=== PATIENT | female | born 2000 | race Caucasian/White ===

== ENCOUNTER 2020-02-10 14:25 | Outpatient (CLI) | payer BC, MEDICAID ==
[~2020-02-10] VITALS: Ht 157.5 cm; Wt 69.1 kg
--- NOTE | 2020-02-10 14:30 | NUR ---
1430-37.0 G1 Ambulatory to LR 4 with complaints of leaking of fluid at 1145. Assisted into gown and placed on EFM. VSS, see flow record. Amnitest negative SVE by ADAMA Hanson /. Repositioned WL. Assessment complete. Updated on plan of care.
[2020-02-10 14:33] VITALS: BP 127/86; PULSE 106; TEMP 98.1
[2020-02-10] MEDS ORDERED: ZOLOFT 100MG100 MG PO (14:37)
[2020-02-10] MEDS ORDERED: PRENATAL (14:38)
[2020-02-10 15:25] VITALS: BP 118/75; PULSE 83; TEMP 98.1
== END 2020-02-10 15:40 | disposition home or self-care (01) ==
LOC: LDRO 14:25
DX: O62.9 Abnormality of forces of labor, unspecified (principal); Z3A.37 37 weeks gestation of pregnancy

== ENCOUNTER 2020-02-14 07:41 | Inpatient (IN) | payer BC, MEDICAID ==
[2020-02-14] VITALS (61 sets, daily range): BP systolic 100–165; BP diastolic 59–93; PULSE 75–136; TEMP 97.9–100
[~2020-02-14] VITALS: Ht 157.5 cm; Wt 68.2 kg
--- NOTE | 2020-02-14 07:30 | NUR ---
0730- Pt arrives on unit via wheelchair with complaints of UCs since 0500 this morning. Pt denies LOF, or VB. +FM. Pt into bathroom to change into gown. 0735- SVE by this RN, /, unable to determine in membranes felt with exam. Unable to lift head off of cervix, no fluid noted, exam glove swabbed with amniotrace, inconclusive. Pt denies noticing fluid or vaginal discharge. Will continue to monitor.
[~2020-02-14 07:41] MED LIST: PRENATAL; ZOLOFT 100MG100 MG PO
[2020-02-14 08:36] LABS: BASO % 0.3 % (0.0-2.0); EOS # 0.1 (0.0-0.7); EOS % 0.4 % (0-4.0); GRAN # 10.2 (1.4-6.5); HEMOGLOBIN 10.7 g/dl (12.5-16.0); LYMPH # 2.4 (1.2-3.4); LYMPH % 17.4 % (20.0-51.0); MEAN CELL VOLUME 75 fl (80.0-100.0); MEAN CORPUSCULAR HEMOGLOBIN 24 pg (27.0-31.0); MEAN CORPUSCULAR HGB CONC 32 g/dl (33.0-37.0); MEAN PLATELET VOLUME 11.2 fl (7.4-10.4); MONO % 7.4 % (1.7-9.3); PLATELET COUNT 152 K/mm3 (130-400); RED BLOOD COUNT 4.48 M/mm3 (4.10-5.30); REDCELL DISTRIBUTION WIDTH-CV 13.9 % (11.5-14.5)
[2020-02-14 08:50] LABS: HEMATOCRIT 33.6 % (37.0-47.0)
--- NOTE | 2020-02-14 09:15 | NUR ---
0850- EFM and TOCO off, Pt up to void, urine sample obtained for UDS, Explained to Pt and pt verbalizes understanding. 0856- Pt back to bed, Sitting on side of bed for epidural placement. EFM and TOCO on, not tracing well due to maternal position. Sania, KEN at bedside. O2 sat monitor on and tracing. 09- Test dose by DIVISION LEADER, see anestesia record. 912- Pt assisted to semi-fowlers with WL. O2 sat monitor off. EFM and TOCO adjuseted and tracing.
[2020-02-14 09:55] LABS: TRICYCLIC ANTIDEPRESS URINE NEGATIVE
--- NOTE | 2020-02-14 10:30 | NUR ---
1010- Dr Benitez at nurses station, updated on Pt status, reviews strip. No new orders at this time. remains on unit.
--- NOTE | 2020-02-14 10:30 | NUR ---
1010- Dr Benitez at nurses station, updated on Pt staus, reviews strip. No new orders at this time. remains on unit.
--- NOTE | 2020-02-14 14:30 | NUR ---
1424- Dr Benitez at bedside, SVE umchanged from previous exam. Pt repositioned to LL with right leg on stirrup. Dr Benitez give VORB to start Pitocin per policy at 2mu.
--- NOTE | 2020-02-14 16:16 | NUR ---
1616- Pt states she, "felt a pop". Pt repositioned for SVE, schulz catheter noted to be out of urethra and laying in bed, balloon completely deflated.
--- NOTE | 2020-02-14 16:30 | NUR ---
1616- SVE by this RN, complete/+1. Practice push x1. Dr Benitez on unit, updated, MD instructs to begin pushing.
--- NOTE | 2020-02-14 18:00 | NUR ---
174- Dr Benitez at bedside to evaluate pushing. Pt feeling defeated, wants to stop pushing and do section. MD encourages Pt to continue pushing so she can evaluate. Pt agrees, continuus pushing with UCs. 1754- Dr Benitez explains that baby is not coming down in pelvis well but is otherwise tolerating pushing well. Pt wants to procede with section. Informed consent provided by . Charline off. Other staff notified of plan.
--- NOTE | 2020-02-14 18:20 | NUR ---
180- Lower abdomen/pubic area prepped by this RN. 1809- Sandoval placed by this RN, light pink urine noted. 1813- ABD prep by this RN using chlorahexadine wash. 1815- Bedside report given to ADAMA Martinez. 182- EFM and TOCO off. Pt taken to OR by Mariola and this RN. at bedside.
--- NOTE | 2020-02-14 19:25 | NUR ---
1924 MODERATE FLOW WITH FUNDAL MASSAGE- NO CLOTS
--- NOTE | 2020-02-14 19:30 | NUR ---
MODERATE FLOW WITH MASSAGE- NO CLOTS DR MORELOS HERE.FUNDUS FRIM
[2020-02-15 00:45] VITALS: BP 136/87; PULSE 83
--- NOTE | 2020-02-15 01:27 | NUR ---
URINE LESS CONCENTRATED- GREATER VOLUME THIS HOUR 175CC. HAS SLEPT 1 HOUR AND NOW . FEELS BETTER .LOCHIA LESS
--- NOTE | 2020-02-15 02:00 | NUR ---
Easily up from bed, to bathroom with little assist- says feeling much better now. schulz removed, cammie care. Thin stream of dark red lochia while seated on toilet for approx 15 sec. unmeasured , specipan not in stool. Very small clot visible. VSS asymptomatic.HS care at sink- returns to bed, baby at bedside in crib, Had nursed well approx 45 min before going to br. PO fluids and soup taken well. Epidural cath removed while at sink.Spouse here.
[2020-02-15 05:03] VITALS: BP 137/68; PULSE 87; TEMP 97.9
--- NOTE | 2020-02-15 05:04 | NUR ---
UP TO BR WITH LITTLE ASSIST. VOIDS 500CC BLOODY. NO DIZZYNESS. FEELS GREAT PER PT
[2020-02-15 07:31] VITALS: BP 114/68; PULSE 76; TEMP 98.1
[2020-02-15 16:09] VITALS: BP 113/68; PULSE 76; TEMP 98.1
[2020-02-15 19:00] VITALS: BP 130/81; PULSE 91; TEMP 99.2
[2020-02-16 08:00] VITALS: BP 114/64; PULSE 76; TEMP 98.6
[2020-02-16] MEDS ORDERED: MOTRIN 800800 MG/TAB PO (12:01)
[2020-02-16] MEDS ORDERED: PERCOCET 325 MG1 TA2 PO (12:01)
[2020-02-16] MEDS ORDERED: ZOLOFT 100MG100 MG PO (12:02)
== END 2020-02-16 14:38 | disposition home or self-care (01) | DRG 787 ==
LOC: LDRO 07:41 → LDR 07:57 → OB 07:57
PROVIDERS: ADMIT Student in an Organized Health Care Education/Training Program
PROC: 10D00Z1 Extraction of Products of Conception, Low, Open Approach (ICD-10-PCS; principal; 2020-02-14)
DX: O99.344 Other mental disorders complicating childbirth (principal); O33.0 Maternal care for disproportion due to deformity of maternal pelvic bones; F31.9 Bipolar disorder, unspecified; Z3A.37 37 weeks gestation of pregnancy; Z37.0 Single live birth
CPT/HCPCS: J0690; J1885; J2210; J2370; J2400; J2405; J2590; J2791; J7120